=== PATIENT | female | born 1980 | race Caucasian/White ===

== ENCOUNTER 2017-11-11 15:05 | Emergency (ER) | payer OTHER ==
[~2017-11-11] VITALS: Ht 157.5 cm; Wt 61.2 kg
[~2017-11-11 15:05] MED LIST: IBUPROFEN800 M1 PO; PERCOCET 5-3251 EACH PO; PRENATABS RX T1 EACH PO; SLOW FE142 MG PO
[2017-11-11 15:52] LABS: ABSOLUTE BASOPHIL COUNT 0.1 /CUMM (0.0-0.2); ABSOLUTE EOSINOPHIL COUNT 0 /CUMM (0.0-0.7); ABSOLUTE GRANULOCYTE CT 11.1 /CUMM (1.4-6.5); ABSOLUTE LYMPH COUNT 0.8 /CUMM (1.2-3.4); ABSOLUTE MONOCYTE COUNT 0.6 /CUMM (0.10-0.60); BASOPHIL % 0.6 % (0.0-2.0); EOSINOPHIL % 0.1 % (0-5); HEMATOCRIT 41.2 % (37-47); MEAN CORPUSCULAR HGB 28.6 PG (27.0-31.0); MEAN CORPUSCULAR HGB CONC 33.4 G/DL (33.0-37.0); MEAN CORPUSCULAR VOLUME 85.9 FL (81.0-99.0); MEAN PLATELET VOLUME 9.5 FL (7.4-10.4); PLATELET COUNT 171 /CUMM (130-400); RBC DISTRIBUTION WIDTH 13.4 % (11.5-14.5); WHITE BLOOD CELL COUNT 12.7 /CUMM (4.8-10.8)
[2017-11-11 16:32] LABS: GRANULOCYTE % 87.7 % (42.2-75.2)
--- NOTE | 2017-11-11 17:31 | ED GI/GU/ABDOMINAL COMPLAINT ---
History of Present Illness General Chief Complaint: Abdominal Pain/Flank Pain Stated Complaint: SIB URGENT CARE FOR LRQ ABD PAIN AND FEVER Source: patient, old records Exam Limitations: no limitations Vital Signs & Intake/Output Vital Signs & Intake/Output Vital Signs Date Time Temp Pulse Resp B/P B/P Pulse O2 O2 Flow FiO2 Mean Ox Delivery Rate 11/12 1911 98.8 83 18 113/65 98 Room Air 11/11 1521 99.1 111 20 109/73 98 Room Air Allergies Coded Allergies: ciprofloxacin (From CIPRO) (Mild, HIVES/SWELLING 06/30/16) Reconcile Medications Ferrous Sulfate (Slow Fe) 142 MG (45 MG IRON) TABLET.ER 45 MG PO DAILY supplement (Reported) Ibuprofen 800 MG TABLET 800 MG PO Q6P PRN UTERINE CRAMPING Oxycodone HCl/Acetaminophen (Percocet 5-325 MG Tablet) 5 MG-325 MG TABLET 2 TAB PO Q4P PRN PAIN SCALE 7-10 (SEVERE) Vit #76/Iron,Carb/FA (Prenatabs Rx Tablet) 29 MG IRON-1 MG TABLET 1 TAB PO DAILY supplement (Reported) Triage Note: RLQ PAIN SINCE LAST NIGHT. STATES SHE THOUGHT SHE PULLED A MUSCLE BUT TODAY STARTED LOW GRADE FEVER AND THE PAIN IS PERSISTENT AND SOMETIMES SHARP Triage Nurses Notes Reviewed? yes ? n Is pt currently ? No Onset: Abrupt Duration: day(s): (1), constant Timing: recent history Quality/Severity: aching, cramping Severity Numbers: 8 Location: right lower quadrant Radiation: no radiation Activities at Onset: none No Modifying Factors: none Associated Symptoms: denies HPI: 37 Yo female rlq pain since last night, nausea. no vomiting, no diarrhea. last bm yesterday normal per pt. no h/o similar sx. pain is nonrad. reports to fever today. no urinary urg, freq, dysuria, hematuria. no vag bleeding or dc. lmp last week adn normal per pt. she did not take anything prior to arrival. only avd surger sig for in 2016. sx initially were worse with movement. no other abd pain. no sick contacts. (Owen GALVEZ,Cornelius) Past History Travel History Traveled to [place] past 21 day No Medical History Any Pertinent Medical History? 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 No (Cornelius Davidson) Review of Systems Review of Systems Constitutional: Reports: see HPI. All Other Systems: Reviewed and Negative Comments Review of systems: See HPI, All other systems negative. Constitutional, no chills no fever HEENT: no sore throat no congestion, Cardiovascular: No chest pain , no palpitation Skin: no rashes, no change in skin Respiratory: No dyspnea no cough no sputum GI: No nausea no vomiting, no diarrhea, no bloating/constipation : No dysuria No hematuria, no frequency Muscle skeletal: No joint pain, no back pain, no neck pain Neurologic: , no headache Heme/endocrine: No bruising (Cornelius Davidson) Physical Exam Physical Exam General Appearance: well developed/nourished, no apparent distress, alert, awake , comfortable Gastrointestinal: soft Comments: Well-developed well-nourished person in no acute distress HEENT: Normal EENT exam; PERRL, EOMI, HEAD is atraumatic. moist mucous membranes. Neck: Supple, normal range of motion Back: Nontender, no CVA tenderness. Full range of motion Cardiovascular: Regular rate and rhythms no murmurs rub Respiratory:No respiratory distress. Patient speaking in full complete sentences. Breath sounds clear to auscultation bilaterally: NO W/R/R Abdomen: Soft, mild right lower quadrant tenderness palpation negative Rovsing's negative obturator, nondistended, no appreciable organomegaly. Normal bowel sounds. No rebound/guarding, No appreciable enlargement of the abdominal aorta, No ascites. Extremity: No edema, full range of motion of extremities Neuro: Alert oriented x3, motor sensory normal,There were no obvious focal neurologic abnormalities. Skin: No appreciable rash on exposed skin, skin is warm and dry. Psych: Mood and affect is normal, memory and judgment is normal. Core Measures ACS in differential dx? No Sepsis Present: No Sepsis Focused Exam Completed? No (Cornelius Davidson) Progress Differential Diagnosis: appendicitis, biliary colic, bowel obstruction, cholecystitis, diverticulitis, ectopic , gastritis, hepatitis, hernia, inflamm bowel dis, ovarian cyst, PUD/GERD, perforated viscous, threatened AB, UTI/pyelo Plan of Care: Orders Procedure Date/time Status C-REACTIVE PROTEIN 11/11 153 Complete URINE 11/11 152 Complete URINALYSIS 11/11 152 Complete COMPREHENSIVE METABOLIC PANEL 11/11 152 Complete CBC WITHOUT DIFFERENTIAL 11/11 152 Complete Laboratory Tests 11/11/17 1553: Urine Color YEL, Urine Clarity CLEAR, Urine pH 6.0, Ur Specific Reading 1.025, Urine Protein NEG, Urine Ketones >=80, Urine Nitrite POS H, Urine Bilirubin NEG , Urine Urobilinogen 0.2, Ur Leukocyte Esterase NEG, Ur Microscopic SEDIMENT EXAMINED, Urine RBC 1-3, Urine WBC 1-3 H, Ur Epithelial Cells FEW, Urine Bacteria PACKD H, Urine Hemoglobin MOD H, Urine Glucose NEG, Urine Test NEGATIVE 11/11/17 1536: Anion Gap 12, Estimated GFR > 60, BUN/Creatinine Ratio 21.7, Glucose 103 H, Calcium 9.8, Total Bilirubin 0.9, AST 22, ALT 24, Alkaline Phosphatase 60, C- Reactive Prot, Quant 2.6 H, Total Protein 8.2, Albumin 5.1 H, Globulin 3.1, Albumin/Globulin Ratio 1.6, CBC w Diff NO MAN DIFF REQ, RBC 4.80, MCV 85.9, MCH 28.6, MCHC 33.4, RDW 13.4, MPV 9.5, Gran % 87.7 H, Lymphocytes % 6.5 L, Monocytes % 5.1, Eosinophils % 0.1, Basophils % 0.6, Absolute Granulocytes 11.1 H, Absolute Lymphocytes 0.8 L, Absolute Monocytes 0.6, Absolute Eosinophils 0, Absolute Basophils 0.1 11/11/17 1526: C-Reactive Prot, Quant Cancelled labs ordered from triage 1725 pt denies pain at this time, improvement with toradol, ct ordered, i d/w her all of her labs at his time. \ Case discussed with Dr. Decker agrees with plan patient was educated on her CAT scan she on repeat evaluation is declining anything else for pain, she remains afebrile nontoxic appearing I discussed with her need for close follow- up with Dr. Schuster tomorrow, I discussed with her that she may need surgery for removal, return precautions were discussed at least she feels comfortable with this plan and discharge at this time Diagnostic Imaging: Viewed by Me: CT Scan. Discussed w/RAD: CT Scan. Radiology Impression: PATIENT: ROSA CASTILLO PRESENT AGE: 37 PATIENT ACCOUNT NO: [id number] : 81 LOCATION: [facility] ORDERING PHYSICIAN: Cornelius GALVEZ SERVICE DATE: 11/11/17 EXAM TYPE: CAT - CT ABD & PELVIS W IV CONTRAST EXAMINATION: CT ABDOMEN AND PELVIS WITH CONTRAST CLINICAL INFORMATION: Rule out appendicitis or ovarian cyst. Right lower quadrant abdominal pain. Fever and white count. COMPARISON: None TECHNIQUE : Multidetector volumetric imaging was performed of the abdomen and pelvis following IV administration of 95 mL of Optiray 320 contrast. Sagittal and coronal reformatted images were obtained on the technologist's workstation. DLP: 284.5 mGy-cm FINDINGS: There is a 3.2 x 2.8 x 3.4 cm complex cystic lesion in the right adnexal region which contains differential fluid levels and fat attenuation non-dependently, most indicative for a dermoid cyst. No inflammatory changes are seen in the deep pelvis. The left adnexum and uterus appear normal. There is no evidence of appendicitis. No bowel obstruction is seen. There is no abnormal large bowel wall thickening. There is no diverticular disease. The bladder is distended without wall thickening. The liver, spleen, pancreas, adrenal glands, and kidneys are normal. The gallbladder is normal in appearance. The abdominal aorta is normal in caliber. There is no adenopathy. No drainable fluid collection is seen. A small fatty-containing umbilical hernia is visible. The osseous structures are normal. The imaged portions of the lungs are clear. IMPRESSION: Dermoid cyst in the right aspect of the deep pelvis in the region of the adnexum measuring 3.2 x 2.8 x 3.4 cm in size. No evidence of appendicitis. No right lower quadrant abdominal inflammatory changes. DICTATED BY: Van Hester MD DATE/TIME DICTATED:11/11/171752 SUPERVISOR CUTTING AND SEWING ROOM:[facility]RET DATE/ TIME TRANSCRIBED:11/11/171752 CONFIDENTIAL, DO NOT COPY WITHOUT APPROPRIATE AUTHORIZATION. 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 interchange tylenol and motrin for pain. return at anytime sooner with any concerns or worsening of your symptoms. Departure Forms: Customer Survey General Discharge Information (Cornelius Davidson) PA/MATERIAL MOVER Co-Sign Statement Statement: ED Attending supervision documentation- [] I saw and evaluated the patient. I have also reviewed all the pertinent lab results and diagnostic results. I agree with the findings and the plan of care as documented in the PA's/MATERIAL MOVER's documentation. [X] I have reviewed the ED Record and agree with the PA's/MATERIAL MOVER's documentation. [] Additions or exceptions (if any) to the PAs/MATERIAL MOVER's note and plan are summarized below: [] (Jeronimo HDZ,Van Buck)
--- NOTE | 2017-11-11 18:03 | CT SCAN REPORT ---
EXAMINATION: CT ABDOMEN AND PELVIS WITH CONTRAST CLINICAL INFORMATION: Rule out appendicitis or ovarian cyst. Right lower quadrant abdominal pain. Fever and white count. COMPARISON: None TECHNIQUE: Multidetector volumetric imaging was performed of the abdomen and pelvis following IV administration of 95 mL of Optiray 320 contrast. Sagittal and coronal reformatted images were obtained on the technologist's workstation. DLP: 284.5 mGy-cm FINDINGS: There is a 3.2 x 2.8 x 3.4 cm complex cystic lesion in the right adnexal region which contains differential fluid levels and fat attenuation non-dependently, most indicative for a dermoid cyst. No inflammatory changes are seen in the deep pelvis. The left adnexum and uterus appear normal. There is no evidence of appendicitis. No bowel obstruction is seen. There is no abnormal large bowel wall thickening. There is no diverticular disease. The bladder is distended without wall thickening. The liver, spleen, pancreas, adrenal glands, and kidneys are normal. The gallbladder is normal in appearance. The abdominal aorta is normal in caliber. There is no adenopathy. No drainable fluid collection is seen. A small fatty-containing umbilical hernia is visible. The osseous structures are normal. The imaged portions of the lungs are clear. IMPRESSION: Dermoid cyst in the right aspect of the deep pelvis in the region of the adnexum measuring 3.2 x 2.8 x 3.4 cm in size. No evidence of appendicitis. No right lower quadrant abdominal inflammatory changes.
[2017-11-11 19:12] VITALS: BP 113/65
== END 2017-11-11 19:14 ==
LOC: ERH 15:05
PROVIDERS: Emergency Medicine
DX: D36.7 Benign neoplasm of other specified sites (principal)
CPT/HCPCS: 74177; 81001; 81025; 96361; 96374; J1885